=== PATIENT | female | born 1985 | race Caucasian/White ===

== ENCOUNTER 2017-05-03 14:13 | Emergency (ER) | payer MEDICAID | END 2017-05-03 16:51 | disposition home or self-care (01) | LOC: D.ER 14:13 | DX: F07.81 Postconcussional syndrome (principal); S80.01XA Contusion of right knee, initial encounter; S80.11XA Contusion of right lower leg, initial encounter; V49.9XXA Car occupant (driver) (passenger) injured in unspecified traffic accident, initial encounter; Y93.89 Activity, other specified; Y92.410 Unspecified street and highway as the place of occurrence of the external cause; M79.1 Myalgia ==

== ENCOUNTER 2018-08-19 08:15 | Day surgery (SDC) | payer MEDICAID ==
[2018-08-18 11:58] LABS: HEMATOCRIT 43.2 % (36.0-48.0); HEMOGLOBIN 14.8 g/dL (12-16); MCH 31.1 pg (26.0-34.0); MCHC 34.3 g/dL (31.0-37.0); MCV 90.8 fL (80.0-100.0); MEAN PLATELET VOLUME 9.2 fL (7.4-10.4); RBC 4.76 10x6/uL (4.00-5.40); RDW 14.4 % (11.5-14.5); WBC 11.6 10x3/uL (4.8-10.8)
[~2018-08-19] VITALS: Ht 167.6 cm; Wt 113.4 kg
[~2018-08-19 08:15] MED LIST: LISINOPRIL-HCT1 EAC4 PO; ULTRAM50 MG PO
[2018-08-19 08:34] VITALS: BP 116/80; Ht 167.6 cm; Wt 113.4 kg
[2018-08-19 08:54] LABS: HCG URINE NEGATIVE (NEGATIVE)
[2018-08-19] MEDS ORDERED: KEFLEX500 MG PO (11:06)
[2018-08-19] MEDS ORDERED: PERCOCET 7.5/321 TAB PO (11:06)
--- NOTE | 2018-08-19 14:16 | NUR ---
1345 IV REMOVED WITH CATHALON INTACT. ALL DC INSTRUCTIONS GIVEN. VOICED UNDERSTANDING. TAKEN DOWN VIA W/C AND ASSISTED TO CAR WITH FAMILY. ADVISED TO CALL OR COME BACK IF ANY PROBLEMS.
--- NOTE | 2018-08-19 14:24 | OP ---
PATIENT NAME: PAL CHACON MEDICAL RECORD: [id number] :84 LOCATION:[facility] ADMISSION DATE: SURGEON: TIM KATE DO DATE OF OPERATION: 08/19/2018 PROCEDURE PERFORMED: Right knee arthroscopy with patella abrasion chondroplasty and medial capsule imbrication. 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 INDICATIONS: Ms. Chacon is a 33-year-old female who has had several knee surgeries in the past. Her patella keeps dislocating laterally. She says she has had several rounds of physical therapy to no avail. She does not recall an event where it happened, it just happens few times a month. She had an MRI, which did show the chondromalacia of the lateral facet of the patella. I informed her that we could do chondroplasty and then try to do a medial imbrication to see if that would help with the instability, but she may have recurrence. She was okay with that plan and was aware of the risks including infection, bleeding, damage to nerve and vessels and need for further surgery, she signed the consent. SURGEON: Tim Kate DO DESCRIPTION OF PROCEDURE: The patient was taken to operative suite, laid in the supine position. The right lower extremity was prepped and draped in sterile fashion. She was given general anesthetic and LMA was placed. Two grams Ancef were given to the patient. A timeout was performed, everyone was in agreement with the correct side, site, patient and procedure. The incision sites were then injected for the anterior lateral and medial portal sites with 0.25% Marcaine with epinephrine 2 mL approximately in this site. The lateral portal was then established with an 11-blade scalpel. Trocar was entered into the knee and into the suprapatellar pouch. The camera was then entered in. The suprapatellar pouch was inspected. No loose bodies were seen in it, but there was severe chondromalacia seen on the lateral patellar facet, grade III was noted. The lateral gutter was inspected and medial gutter, no loose bodies were seen in either one. The knee was then brought from extension to flexion and the medial side of the knee compartment was inspected. The medial portal was established with an 18-gauge spinal needle and an 11-blade scalpel. Then probe was brought in and probed the medial meniscus, it was seen to be in good shape. No tear was seen in it and no chondromalacia was noted on the femur or the tibia of the medial compartment. ACL was probed and seen to be in good position and not loose. The knee was then [id number] and the lateral compartment was inspected and the meniscus was in good shape. No tear was seen it and no chondromalacia was seen on the femur or the tibia. The scope camera was then switched to the medial side and the shaver was brought into the lateral portal and the abrasion chondroplasty was done first with the shaver removing the loose cartilage and then the burner brought in to burn back anything that was hanging down. Patellar stability was checked. She did have good mobility from lateral to medial and excessive mobility from medial to lateral. I then removed the scope and then a small incision over the anterior, superior and medial aspect of the patella at the knee, a small about 2 cm incision. Careful dissection was OPERATIVE REPORT [id number] PAL CHACON made down through the capsule itself and 2 [id number] stitches were put in at that site pulling the patella over medially and giving more stability. These were done with #2 Ethibond. After these were put into place and tied down, stability was checked and she did not have much excursion laterally as prior to the sutures being placed. The scope was then put back in the knee. The patella tracked very well in the trochlea. After the imbrication was done, the water was then turned off, suction was turned on. Excess fluid was removed. The larger incision site the anteromedial superior patella was closed with 2-0 Vicryl and then a 4-0 Monocryl ran on the skin and the 2 poke hole incisions for the scope portion were closed with 4-0 Monocryl in inverted interrupted fashion. Adaptic, 4 x 4's, ABD, Webril, Tip wrap were then placed on the knee. A HIREN hose stocking up to the knee. The patient was awakened and taken to recovery in stable condition. BLOOD LOSS: Minimal. COMPLICATIONS: None. TRANSINT:[id number] Voice Confirmation ID: [id number] DOCUMENT ID: [id number] TIM KATE, DO at 1424 CC: [id number] DICTATION DATE: 08/19/18 1112 RADIOLOGIC ELECTRONIC SPECIALIST: 08/19/18 1207 [address] [place] [id number] [place] [id number]
== END 2018-08-19 13:45 | disposition home or self-care (01) ==
LOC: D.OPS 08:15
PROVIDERS: Anesthesiology; ATTEND Orthopaedic Surgery
DX: M25.361 Other instability, right knee (principal); M22.41 Chondromalacia patellae, right knee; Z01.812 Encounter for preprocedural laboratory examination

== ENCOUNTER 2018-10-04 08:00 | Outpatient (CLI) | payer MEDICAID ==
[2018-08-19 08:34] VITALS: BMI 40.4
[~2018-10-04 08:00] MED LIST changes: +KEFLEX500 MG PO; +PERCOCET 7.5/321 TAB PO
== END 2018-10-04 09:00 | disposition home or self-care (01) ==
LOC: D.MAMMO 08:00
PROVIDERS: ATTEND Nurse Practitioner Family
DX: Z12.31 Encounter for screening mammogram for malignant neoplasm of breast (principal)

== ENCOUNTER 2018-10-21 08:05 | Day surgery (SDC) | payer MEDICAID ==
[2018-10-20 08:54] LABS: HEMATOCRIT 41.1 % (36.0-48.0); HEMOGLOBIN 14.6 g/dL (12-16); MCH 31.8 pg (26.0-34.0); MCHC 35.5 g/dL (31.0-37.0); MCV 89.5 fL (80.0-100.0); MEAN PLATELET VOLUME 9.1 fL (7.4-10.4); RBC 4.59 10x6/uL (4.00-5.40); RDW 14.8 % (11.5-14.5); WBC 11.2 10x3/uL (4.8-10.8)
[~2018-10-21] VITALS: Ht 167.6 cm; Wt 113.4 kg
[~2018-10-21 08:05] MED LIST changes: +HYDROCODON-ACE1 EAC2 PO; +VRAYLAR3 MG PO
[2018-10-21 08:36] VITALS: BP 115/71; Ht 167.6 cm; Wt 113.4 kg
[2018-10-21 08:54] LABS: HCG URINE NEGATIVE (NEGATIVE)
--- NOTE | 2018-10-21 09:02 | NUR ---
SUICIDE POLICY IMPLIMINTED AND LABOR SUPERVISOR NOTFIED FOR PSYCH EVAL AND ONE TO ONE IN PLACED.
--- NOTE | 2018-10-21 09:04 | NUR ---
PILLOW PROVIDED FOR RT SHOULDER TO HELP WITH PAIN CONTROL.
--- NOTE | 2018-10-21 10:10 | NUR ---
DR. JC NOTIFIED AND REVIEWED PT'S BEHAVIOR ABD ASSESSMENT RESULTS. PT IS A LOW RISK PER DR. JC. DR. WEBER STATED TO GIVE RESOURCES TO PT AT TIME OF DISCHARGE. NO FURTHER ORDERS AT THIS TIME. RESOURCES REVIEWED WITH PT AND SHE VERBALIZED UNDERSTANDING. PATIENT STATED "SHE HAS ACTIVELY SEEKED THE HELP OF HER DOCTOR AND IS CURRETLY ON MEDICATION AND SHE FEELS SO MUCH BETTER. SHE IS SEEING A COUNSELOR AND IS FEELING IT IS HELPING HER. SHE HASN'T HAD A THOUGHT OF SUICIDE IN 6 YEARS. SHE HAS A NEPHEW THAT IS THE LIGHT OF HER LIFE. SHE LOVES THAT BOY AND HE SAVED HER ALONG WITH HER SISTER. SHE IS GETTING SURGERY SO THAT SHE CAN PLAY BASEBALL WITH HIM AND ENJOY HIM GROWING UP AND GRADUATING. SHE SAYS SHE DAYDREAMS ABOUT [place] TAK[place]. AND THAT THANKS TO HER FAMILY SHE HAS ALOT OF REASONS TO LIVE." THIS NURSE GAVE PATIENT A SUICIDE FLYER RESOURCES. PATIENT WAS EXCITED TO SEE THAT THERE WAS A TEXT SERVICE.
[2018-10-21] MEDS ORDERED: PERCOCET 10-321 EAC1 PO (13:04)
[2018-10-21] MEDS ORDERED: VISTARIL50 MG PO (13:05)
--- NOTE | 2018-10-21 20:49 | OP ---
PATIENT NAME: PAL CHACON MEDICAL RECORD: [id number] :84 LOCATION:[facility] ADMISSION DATE: SURGEON: NICOLE KATE DO DATE OF OPERATION: 10/21/2018 PROCEDURE PERFORMED: Right shoulder arthroscopy with acromioplasty and subacromial bursectomy. 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 INDICATIONS: Ms. Chacon is a 33-year-old female who has had several rounds of therapy and injections in the right shoulder. She was tired of dealing with the pain and wanted something done. An MRI showed a type 3 acromion and impingement signs. We consented her for the procedure. She is aware of the risk of infection, bleeding, damage to nerves and vessels, need for further surgery, and continued pain. She was okay with that and signed the consent. SURGEON: Nicole Kate DO DESCRIPTION OF PROCEDURE: The patient was taken to the operative suite, laid in the left lateral decubitus position and well padded with an axillary roll. The right shoulder was then prepped and draped in sterile fashion after she was sedated and intubated. LMA was placed. A 900 mg clindamycin was given. Timeout was performed and everyone was in agreement with the correct side, site, patient and procedure. The procedure began by marking out with the acromion and insufflated the shoulder joint with 60 mL of normal saline. The patient did have quite a large body habitus and had difficulty getting into the shoulder joint. At this point, a posterior portal was established with an 11-blade scalpel and could not get in the shoulder joint, but could not get in the subacromial space. A second portal was established and a subacromial space was entered. Anterior portals established as well, trying to get into the joint. This was not done, but the subacromial space was entered. A large incision was used in order to get visual confirmation we are in the subacromial space, lateral portal. Once this was confirmed, the acromion was cleaned off of the burner and then a shaver and then the large spur type 3 acromion was seen. This was then removed with a bur and then the bursa was removed as well with a shaver in the subacromial space. The water was turned off, suction was turned on and excess fluid was removed from the shoulder. The portal sites were then closed, the 2 posterior and one anterior with 4-0 Monocryl. The larger lateral incision was closed with 2-0 Vicryl and 4-0 Monocryl run on the skin. Dermabond glue, Telfa, and Tegaderm were placed on shoulder. She was then awakened and taken to recovery in stable condition. BLOOD LOSS: Minimal. COMPLICATIONS: None. TRANSINT:[id number] Voice Confirmation ID: [id number] DOCUMENT ID: [id number] OPERATIVE REPORT [id number] PAL CHACON MICHAEL D, DO at 2049 CC: [id number] DICTATION DATE: 10/21/18 1308 CHEMICAL ENGRAVER: 10/21/[address] [facility] 10/21/18 [id number] [place] [address]
== END 2018-10-21 14:50 | disposition home or self-care (01) ==
LOC: D.OPS 08:05 → D.PAN 10:00 → D.OPS 10:00
PROVIDERS: Anesthesiology; ATTEND Orthopaedic Surgery
DX: M75.41 Impingement syndrome of right shoulder (principal)

== ENCOUNTER → 2018-12-08 17:01 | Outpatient (CLI) | payer MEDICAID ==
[2018-10-21 08:36] VITALS: BMI 40.4
[~2018-12-08 17:01] MED LIST changes: +DILAUDID4 MG PO; +DOXYCYCLINE HY100 M2 PO; +LATUDA40 MG PO; +PERCOCET 10-321 EAC1 PO; +PROPRANOLOL HCL20 MG PO; +VISTARIL50 MG PO
[2018-12-08 17:11] LABS: BASOPHILS 0.2 % (0-2); EOSINOPHILS 1.4 % (0-7); HEMATOCRIT 40.2 % (36.0-48.0); IMMATURE GRANULOCYTES 0.5 % (0-5); LYMPHOCYTES 16.6 % (15-50); MCH 32.2 pg (26.0-34.0); MCHC 34.8 g/dL (31.0-37.0); MCV 92.4 fL (80.0-100.0); MEAN PLATELET VOLUME 9.5 fL (7.4-10.4); MONOCYTES 5.6 % (2-11); NEUTROPHILS 75.7 % (40-80); PLATELET COUNT 257 10x3/uL (130-400); RBC 4.35 10x6/uL (4.00-5.40); RDW 13.6 % (11.5-14.5); WBC 12.8 10x3/uL (4.8-10.8)
[2018-12-08 18:21] LABS: ERYTHROCYTE SEDIMENTATION RATE 20 mm/hr (0-20)
== END | disposition home or self-care (01) ==
LOC: D.LABREF 17:01
PROVIDERS: ATTEND Orthopaedic Surgery
DX: M25.511 Pain in right shoulder (principal)

== ENCOUNTER 2018-12-14 05:11 | Day surgery (SDC) | payer MEDICAID ==
[~2018-12-14] VITALS: Ht 167.6 cm; Wt 101.2 kg
[~2018-12-14 05:11] MED LIST changes: -DILAUDID4 MG PO; -DOXYCYCLINE HY100 M2 PO
[2018-12-14 05:28] LABS: BASOPHILS 0.2 % (0-2); HEMATOCRIT 40.9 % (36.0-48.0); HEMOGLOBIN 14.3 g/dL (12-16); LYMPHOCYTES 19.5 % (15-50); MCH 32.4 pg (26.0-34.0); MCV 92.5 fL (80.0-100.0); MONOCYTES 6.9 % (2-11); NEUTROPHILS 70.4 % (40-80); PLATELET COUNT 280 10x3/uL (130-400); RBC 4.42 10x6/uL (4.00-5.40); RDW 13.4 % (11.5-14.5); WBC 12.3 10x3/uL (4.8-10.8)
[2018-12-14 05:39] LABS: CALC OSMOLALITY 276 mosm/kg (275-300); CALCIUM 9.2 mg/dL (8.5-10.1); CARBON DIOXIDE 28.2 mmol/L (21.0-32.0); CHLORIDE - SERUM 99 mmol/L (98-107); CREATININE - SERUM 0.9 mg/dL (0.6-1.3); POTASSIUM - SERUM 3.8 mmol/L (3.5-5.1); SODIUM 136 mmol/L (136-145); UREA NITROGEN 21 mg/dL (7-18); eGFR NON AFRICAN AMERICAN 76 mL/min (90-120)
[2018-12-14 05:42] LABS: GLUCOSE 129 mg/dL (74-106)
[2018-12-14 06:20] VITALS: BP 97/51; Ht 167.6 cm; Wt 101.2 kg
[2018-12-14 06:34] LABS: HCG URINE NEGATIVE (NEGATIVE)
[2018-12-14] MEDS ORDERED: DOXYCYCLINE HY100 M2 PO (08:20)
[2018-12-14] MEDS ORDERED: DILAUDID4 MG PO (08:20)
--- NOTE | 2018-12-14 12:27 | OP ---
PATIENT NAME: PAL CHACON MEDICAL RECORD: [id number] :84 LOCATION[facility] ADMISSION DATE: SURGEON: NICOLE KATE DO DATE OF OPERATION: 12/14/2018 DATE OF SERVICE: 12/14/2018 PROCEDURE PERFORMED: Right shoulder arthroscopy with irrigation, debridement and tissue culture. PREOPERATIVE DIAGNOSIS: Infected right shoulder. POSTOPERATIVE DIAGNOSIS: Infected right shoulder. INDICATIONS: Ms. Chacon is a 33-year-old female who underwent subacromial decompression approximately 6 weeks ago. She did well initially until about 2 weeks after the surgery and she had increasing shoulder pain with swelling and labs were drawn. She has increased white count and CRP was elevated. After noting this, I told her that I would take her back and do an irrigation and debridement and do some tissue cultures. She may have an infection. The patient was aware of this and she consented to the procedure. She is aware of the risk of further infection, need for antibiotics, need for further surgery, continued pain and she signed the consent. SURGEON: Nicole Kate DO DESCRIPTION OF PROCEDURE: The patient received a block per anesthesia in the preoperative area and taken to the operative suite, laid in the left lateral decubitus position with the right shoulder up. The right shoulder was then prepped and draped in sterile fashion. Timeout was performed, everyone was in agreeance with the correct side, site, patient and procedure. After that was done, the shoulder joint was injected with 60 mL of normal saline through a posterior portal. The shoulder joint itself was not entered, but the trocar was entered into the subacromial space, this was not entered previously as the subacromial decompression was only performed. The subacromial space was then entered. Anterior and lateral portal were established with an 18-guage spinal needle and 11-blade scalpel. A tissue biter was brought into the anterior portal and tissue was grabbed. Three specimens were taken out of the shoulder and sent for culture. The shoulder was then debrided with a shaver through the anterior and lateral portals and 6 liters of normal saline were flushed through the scope. Once this was completed, the scope water was sent off and suction was turned on. Portal sites were closed with 4-0 Monocryl in an inverted interrupted fashion. A Telfa and Tegaderm were placed over them. She was awakened and taken to recovery in stable condition. BLOOD LOSS: Minimal. COMPLICATIONS: None. She was given 900 mg of clindamycin after the culture was taken. TRANSINT:[id number] Voice Confirmation ID: [id number] DOCUMENT ID: [id number] OPERATIVE REPORT [id number] PAL CHACON MICHAEL D, DO at 1227 CC: [id number] DICTATION DATE: 12/14/18825 FAST FOOD CASHIER: 12/14/18 09 [facility] 12/14/18 [place] [id number] [place] [address]
== END 2018-12-14 10:20 | disposition home or self-care (01) ==
LOC: D.OPS 05:11 → D.PAN 07:30 → D.OPS 07:30
PROVIDERS: Anesthesiology; ATTEND Orthopaedic Surgery
DX: M00.9 Pyogenic arthritis, unspecified (principal); M96.89 Other intraoperative and postprocedural complications and disorders of the musculoskeletal system; Z01.812 Encounter for preprocedural laboratory examination